=== PATIENT | male | born 1960 | race Hispanic/Latino ===

== ENCOUNTER 2017-01-16 19:35 | Inpatient (IN) | payer SELFPAY ==
[2017-01-16 20:37] LABS: #Eosinphils 0.2 thou/uL (0.0-0.7); #Lymphocytes 3.2 thou/uL (1.20-3.40); #Monocytes 0.8 thou/uL (0.11-0.59); #Neutrophils 6.1 thou/uL (1.40-6.50); %Basophils 0.3 % (0.0-1.0); %Lymphocytes 31.3 % (21.0-51.0); %Monocytes 7.3 % (0.0-10.0); Hematocrit 47.5 % (42.0-52.0); Mean Platelet Volume 6.9 fL (7.4-10.4); Red Blood Cell (RBC) Count 5.22 mill/uL (4.70-6.10); White Blood Cell (WBC) Count 10.3 thou/uL (4.8-10.8)
[2017-01-16] MEDS ORDERED: hydrALAZINE 20 MG/ML VIAL ONE (20:45)
--- NOTE | 2017-01-16 20:54 | RAD ---
CHEST ONE VIEW 01/16/17 HISTORY: Hypertension. COMPARISON: None. FINDINGS: Lungs are clear. No pneumothorax or effusion. Cardiac silhouette and mediastinal contours are within normal limits for technique. IMPRESSION: No acute intrathoracic abnormality. POS: [facility]
[2017-01-16 20:58] LABS: ALT (SGPT) 16 U/L (8-55); AST (SGOT) 18 U/L (5-34); Alkaline Phosphatase 87 U/L (40-150); Anion Gap 10 mmol/L (10-20); BUN (Urea Nitrogen) 13 mg/dL (8.4-25.7); Bilirubin, Total 0.4 mg/dL (0.2-1.2); CK (CPK) 167 U/L (30-200); Calc. Creatinine Clearance 0 mL/min (70-130); Calcium 9.5 mg/dL (7.8-10.44); Carbon Dioxide 27 mmol/L (22-29); Chloride 106 mmol/L (98-107); Estimated GFR-MDRD Greater than 90; Globulin 3.3 g/dL (2.4-3.5); Protein, Total 7.4 g/dL (6.0-8.3)
[2017-01-16 21:02] LABS: PTT 27.7 SEC (22.9-36.1); Prothrombin Time 13.2 SEC (12.0-14.7)
--- NOTE | 2017-01-16 21:14 | CT ---
CT BRAIN WITHOUT CONTRAST 01/16/17 HISTORY: Hypertension. Cranial nerve palsy. COMPARISON: None available. FINDINGS: There is abnormal hypodensity of the right external capsule as well as other hypodensities of the rig ht thalamus. Given lack of prior examinations, this is age indeterminate for infarction. No acute hem orrhage. No midline shift or mass effect. Ventricular size and extra-axial CSF spaces are normal for age. There appears to be atrophy of the bilateral lateral rectus muscles. IMPRESSION: 1. Numerous hypodensities throughout the right external capsule, basal ganglia and thalamus are age indeterminate for infarction. MRI should be obtained if there is concern for acute infarction as there is no comparison. 2. No hemorrhage. 3. Bilateral atrophy of the lateral rectus muscles. POS: [facility]
[2017-01-16 21:16] LABS: Bilirubin Negative (Negative); Blood, Urine Negative (Negative); Glucose, Urine (Dipstick) Negative (Negative); Ketone, Urine Negative (Negative); Nitrite Negative (Negative); Protein, Urine (Dipstick) Negative (Neg-Trace)
[2017-01-16] MEDS ORDERED: Aspirin 325 MG TAB ONE (22:49)
--- NOTE | 2017-01-16 22:53 | PDOC.EVN ---
Event Note - Event Note Event Note: [id number] H&P Dictated 1. Acute CVA 2. HTN Plan: see orders
[2017-01-16] MEDS ORDERED: Atorvastatin Calcium 40 MG TAB PO SCH (23:15)
[2017-01-17 00:21] LABS: Troponin I Less than 0.010 ng/mL (< 0.028)
[2017-01-17] MEDS: Sodium Chloride 0.9% 1,000 ML IV SCH ×2 (00:32→13:10)
[2017-01-17 02:20] VITALS: BMI 32.6
[2017-01-17 02:58] LABS: Troponin I Less than 0.010 ng/mL (< 0.028)
--- NOTE | 2017-01-17 08:42 | ULT ---
BILATERAL CAROTID DUPLEX ULTRASOUND: Date: 01/17/17 HISTORY: Double vision. FINDINGS: Real-time color Doppler evaluation of the right and left carotid systems was performed. The left guzman tid bifurcation was high in position and was difficult to visualize. On the right side, peak systolic velocities of the common carotid were 126 cm/second. Internal carot id velocities were 99 cm/second and external carotid velocities were 99 cm/second. On the left side, peak systolic velocities of the common carotid were 120 cm/second. Internal carotid velocities were 53 cm/second and external carotid velocities were 107 cm/second. Vertebral flow was antegrade bilaterally. IMPRESSION: No evidence of hemodynamically significant stenosis of either internal carotid artery. POS: [facility]
[2017-01-17] MEDS: Aspirin 81 mg Enteric Coated Tablet PO SCH (08:49)
--- NOTE | 2017-01-17 09:52 | HP ---
DATE OF ADMISSION: 01/16/2017 CHIEF COMPLAINT: Bilateral double vision. HISTORY OF PRESENT ILLNESS: The patient is a 56-year-old male with past medical history of hypertension came to the ER for bilateral double vision. The patient said he started having double vision since yesterday. The patient complains of generalized weakness, so the patient went to the research analyst because of double vision. In the Ophthalmology office, the patient was diagnosed having elevated blood pressures, so the patient was to go to the ER. The patient denies any headache, denies any nausea, denies any vomiting, denies any chest pain, denies any palpations, denies any cough, denies sputum production, denies any numbness or tingling in the arms or legs, denies any fever, denies any chills. PAST MEDICAL HISTORY: Hypertension. PAST SURGICAL HISTORY: None. SOCIAL HISTORY: Positive for smoking. Denies alcohol, denies any drugs. FAMILY HISTORY: Positive for heart problems. REVIEW OF SYSTEMS: Constitutional: Denies any fever, denies any chills. Eyes: Positive for double vision. Neck: Denies any neck pain. Throat: Denies any throat pain. Cardiovascular: Denies any chest pain, denies any palpitations. Respiratory: Denies any cough, denies sputum production. Gastrointestinal: Denies any nausea, vomiting. Musculoskeletal: denies joint deformities, Integumentary: Denies any rash. Cranial Nerve System: Denies syncope. Psychiatric: Denies anxiety. All other review of systems are reviewed and are negative. PHYSICAL EXAMINATION: CONSTITUTIONAL/VITAL SIGNS: At the time of H&P performed, blood pressure is 180 /98, pulse oximetry 98%, heart rate 78. GENERAL: This patient appears comfortable. HEENT: Pupils equal, round, and reactive to light. Anterior nares patent. Eyes positive for double vision. Nose normal. Teeth intact. Tongue is moist. NECK: Supple, no JVD. CARDIOVASCULAR: S1, S2 present. Regular rate and rhythm. No murmurs, no rubs , no gallops. RESPIRATORY: No wheezing, no rhonchi. Breath sounds bilaterally. GASTROINTESTINAL: Soft, nontender, no guarding, no organomegaly, no masses felt. MUSCULOSKELETAL: No edema. CRANIAL NERVE SYSTEM: Awake. Eyes, positive for double vision. Able to move both the eyes. Neck strength intact, sensory intact. MUSCULOSKELETAL: No edema. PSYCHIATRIC: Mood appropriate at this time. GENITOURINARY: No suprapubic tenderness, no flank tenderness. LABORATORY DATA: White count 10.3, hemoglobin 15.6, platelet count is 245. PT 13.2, INR 1. BMP shows sodium 139, potassium 3.8, chloride 106, CO2 is 27, BUN of 13, creatinine 0.79, glucose 94, calcium 9.5. CK-MB 3.6, troponin 0.010. ASSESSMENT AND PLAN: The patient is a 56-year-old male. 1. Cerebrovascular accident, possibly acute cerebrovascular accident. Plan to consult Neurology to evaluate the patient. Plan to do MRI brain. Plan to keep the patient. Plan to check carotid ultrasound. Plan to get PT, OT to evaluate the patient. 2. Hypertension. CT showed multiple hypodensities. Plan to try to keep systolic blood pressure around 170s to 180s. We will slowly titrate his blood pressure medications. We will monitor blood pressure closely. 3. Deep venous thrombosis and gastrointestinal prophylaxis, SCDs and PPI. The case was discussed in detail with the patient. [facility]
[2017-01-17] MEDS ORDERED: Amlodipine 5 MG TAB PO SCH (13:00)
--- NOTE | 2017-01-17 13:00 | PDOC.PN ---
- Subjective Encounter Start Date: 01/17/17 Encounter Start Time: 08:00 Pt seen for followup re: CVA. Denies chest pain, shortness of breath, fevers or chills. No nausea or vomiting. Unsure re; double vision. - Objective MAR Reviewed: Yes Vital Signs & Weight: Vital Signs (12 hours) Temp Pulse Resp BP Pulse Ox 01/17/17 11:04 97.6 F 71 20 174/92 H 95 01/17/17 10:10 93 18 171/93 H 97 01/17/17 08:50 98.4 F 80 20 01/17/17 07:20 98.4 F 80 20 177/97 H 95 01/17/17 04:00 98.1 F 76 18 143/75 H 95 Weight Weight 178 lb 9.191 oz I&O: 01/16/17 01/17/17 01/18/17 06:59 06:59 06:59 Intake Total 515 Output Total 850 300 Balance -335 -300 Result Diagrams: 01/16/17 20:32 01/16/17 20:32 EKG Reviewed by me: Yes (Tele; NSR) Phys Exam - Physical Examination Obese HEENT: PERRLA, moist MMs, sclera anicteric, oral pharynx no lesions Neck: no nodes, no JVD, supple, full ROM Respiratory: no wheezing, no rales, no rhonchi, clear to auscultation bilateral Cardiovascular: RRR, no rub Gastrointestinal: soft, non-tender, no distention, positive bowel sounds Musculoskeletal: pulses present Neurological: non-focal, normal sensation, moves all 4 limbs Lymphatic: no nodes Psychiatric: normal affect, A&O x 3 Skin: no rash, normal turgor, cap refill <2 seconds Dx/Plan (1) Hypertensive emergency Code(s): I16.1 - HYPERTENSIVE EMERGENCY Status: Acute (2) CVA (cerebral vascular accident) Code(s): I63.9 - CEREBRAL INFARCTION, UNSPECIFIED Status: Suspected (3) Diplopia Code(s): H53.2 - DIPLOPIA Status: Acute (4) Tobacco abuse Code(s): Z72.0 - TOBACCO USE Status: Chronic - Plan PT/OT, out of bed/ambulate * . Start hydralazine, amlodipine scheduled. Start PRN IV hydralazine. Check urine drug screen. Continue statin, aspirin. Await MRI brain, neurology consult. Review of Systems - Review of Systems Constitutional: negative: Fever, Chills, Sweats, Weakness, Malaise Respiratory: negative: Cough, Dry, Shortness of Breath, Hemoptysis, SOB with Excertion, Pleuritic Pain, Sputum, Wheezing Cardiovascular: negative: Chest Pain, Palpitations, Orthopnea, Paroxysmal Noc. Dyspnea, Edema, Light Headedness Gastrointestinal: negative: Nausea, Vomiting, Abdominal Pain, Diarrhea, Constipation, Melena, Hematochezia Skin: negative: Rash, Lesions, Nick, Bruising Neurological: negative: Weakness, Numbness, Incoordination, Change in Speech, Confusion, Seizures - Medications/Allergies Allergies/Adverse Reactions: Allergies Allergy/AdvReac Type Severity Reaction Status Date / Time No Known Allergies Allergy Verified 01/17/17 01:53 Medications: Current Medications Amlodipine Besylate (Norvasc) 5 mg PO DAILY [facility] Amlodipine Besylate (Norvasc) 5 mg PO NOW [facility] Stop: 01/17/17 15:00 Aspirin (Ecotrin) 81 mg PO DAILY [facility] Last Admin: 01/17/17 08:49 Dose: 81 mg Atorvastatin Calcium (Lipitor) 40 mg PO HS [facility] Hydralazine HCl (Apresoline) 10 mg SLOW IVP Q6H PRN PRN Reason: SBP Greater Than 170 Hydralazine HCl (Apresoline) 25 mg PO TID [facility] Sodium Chloride (Normal Saline 0.9%) 1,000 mls @ 75 mls/hr IV .[id number] [facility] Last Admin: 01/17/17 00:32 Dose: 1,000 mls Influenza Virus Vaccine (Fluzone Quad [id number] Syringe) 0.5 ml IM .ONCE ONE Stop: 01/18/17 09:01 Pneumococcal Polyvalent Vaccine (Pneumovax 23) 0.5 ml IM .ONCE ONE Stop: 01/18/17 09:01 Sodium Chloride (Flush - Normal Saline) 10 ml IVF Q12HR [facility] Last Admin: 01/17/17 08:52 Dose: Not Given Sodium Chloride (Flush - Normal Saline) 10 ml IVF PRN PRN PRN Reason: Saline Flush
[2017-01-17] MEDS: hydrALAZINE 20 MG/ML VIAL SLOW IVP PRN (13:19)
--- NOTE | 2017-01-17 14:20 | MRI ---
MRI BRAIN PERFORMED WITHOUT CONTRAST ENHANCEMENT: Date: 01/17/17 HISTORY: Stroke symptoms, double vision x2 days. FINDINGS: There is mild ventricular and sulcal prominence. There are some areas of T2 and FLAIR hyperintensity within the white matter consistent with some chronic white matter change. On the diffusion-weighted s equence, I do not see any signs that would suggest acute infarct. No intra or extra-axial masses. The pituitary is normal in appearance. There is mucosal change in the mastoid air cells bilaterally. IMPRESSION: Atrophy with chronic white matter change. No acute intracranial process. POS: [facility]
[2017-01-17 14:41] LABS: Amphetamine Not Detected (NotDetected); Methadone Not Detected (NotDetected); Methamphetamine Not Detected (NotDetected)
[2017-01-17] MEDS: hydrALAZINE 25 MG TAB PO SCH ×2 (14:56→20:10)
[2017-01-17] MEDS ORDERED: cloNIDine 0.1 MG TAB PO SCH (16:15)
[2017-01-17] MEDS ORDERED: hydrALAZINE 20 MG/ML VIAL SLOW IVP SCH (16:15)
[2017-01-17] MEDS: Atorvastatin Calcium 40 MG TAB PO SCH (20:09)
--- NOTE | 2017-01-17 22:24 | CON ---
DATE OF CONSULTATION: 01/17/2017 REFERRING PROVIDER: Dr. Kurt Matthews. REASON FOR CONSULTATION: Diplopia. HISTORY OF PRESENT ILLNESS: Mr. Tom is a pleasant 56-year-old male who has been consul meagan for evaluation of diplopia. History is somewhat limited as the patient is speaking and thus it was being translated by a friend. According to the patient, he started having double vision yesterday. His double vision was side to side, it was worse with looking at distance. He had gone t o see his environmental engineering assistant where he was noted to have a high blood pressure and thus he was asked to b e present to the emergency room. He reports, he felt too weak all over, but was able to walk without any difficulty. He did not have any balance issues. There was no headache, chest pain, palpitation , nausea, vomiting, lightheadedness or dizziness. He did not complain of any numbness or tingling se nsation or weakness in upper or unilateral weakness. He reports that his symptoms are better today c ompared to yesterday. PAST MEDICAL HISTORY: Significant for hypertension. PAST SURGICAL HISTORY: None. SOCIAL HISTORY: He denies alcohol use or illicit drug use. He does smoke on a daily basis. FAMILY HISTORY: Significant for heart problems. CURRENT MEDICATIONS: Please review MAR. ALLERGIES: No known drug allergies. REVIEW OF SYSTEMS: As mentioned in the HPI, otherwise negative. PHYSICAL EXAMINATION: VITAL SIGNS: Blood pressure of 200/104, pulse of 81, temperature of 98, respirations of 18 and O2 sa ts of 99% on room air. GENERAL: A well-developed, well-nourished male in no apparent distress. RESPIRATORY: Clear to auscultation bilaterally. CARDIOVASCULAR: Regular rate and rhythm. NEUROLOGICAL: Mental status: The patient is awake, alert and oriented x3. Speech and language: Fl uent speech. Cranial nerves: Pupils are 3 mm and reactive. Visual glynn are intact. Extraocular muscles are intact. No nystagmus is noted. Face is symmetric. Tongue and uvula are midline. Motor exam showed normal tone and bulk with a 5/5 strength in both upper and lower extremities. Sensory: Sensation is intact and symmetric. Deep tendon reflexes are 2+ reflexes in both upper and lower ext remities. Babinski: Plantar responses flexion bilaterally. Coordination intact to [id number] er tapping bilaterally. Romberg is negative. Gait is normal. Tandem gait. LABORATORY DATA: Labs are reviewed, which included CBC, coag panel, CMP, lipid profile, urinalysis a nd urine drug screen, which is all essentially normal. IMAGING STUDIES: MRI brain without contrast was reviewed, which showed no acute intracranial abnorma lity. Carotid Doppler results were reviewed, which showed no extracranial vascular abnormality. Ech ocardiogram results were reviewed, which was essentially normal. IMPRESSION AND PLAN: 1. Hypertensive urgency. 2. Bilateral diplopia, due to #1. 3. Malignant hypertension. Mr. Tom is a pleasant 56-year-old male who presented the sudden onset of diplopia. His blood pressure was noted to be significantly elevated. His symptoms are better now. I have reviewe d his MRI brain, carotid Dopplers and echocardiogram results, which are essentially normal. His even ts are likely secondary to hypertensive urgency. I would recommend treating his blood pressure with a goal of systolic pressure of 120-140/80-85. Patient needs to be on aspirin 81 mg daily for seconda ry stroke prevention. Patient is okay to be discharged to home when medically ready. Thank you for your consultation.
[2017-01-18] MEDS: Sodium Chloride 0.9% 1,000 ML IV SCH ×2 (02:05→14:02)
[2017-01-18] MEDS: hydrALAZINE 25 MG TAB PO SCH ×3 (08:13→20:31)
[2017-01-18] MEDS: Aspirin 81 mg Enteric Coated Tablet PO SCH (08:13)
[2017-01-18] MEDS ORDERED: Amlodipine 5 MG TAB PO SCH ×2 (09:00→12:15)
[2017-01-18] MEDS ORDERED: FLU VACC QS2017-18 36 mo. & older 0.5 ML SYRINGE IM ONE (09:00)
[2017-01-18] MEDS ORDERED: hydrALAZINE 25 MG TAB PO SCH (10:00)
[2017-01-18] MEDS: hydrALAZINE 20 MG/ML VIAL SLOW IVP PRN (11:48)
--- NOTE | 2017-01-18 12:05 | PDOC.PN ---
- Subjective Encounter Start Date: 01/18/17 Encounter Start Time: 07:20 Pt seen for followup re: hypertensive urgency. denoies chest pain, nausea or vomiting. No diplopia. - Objective MAR Reviewed: Yes Vital Signs & Weight: Vital Signs (12 hours) Temp Pulse Resp BP Pulse Ox 01/18/17 11:55 98.8 F 83 20 209/102 H 96 01/18/17 11:48 72 01/18/17 09:51 72 01/18/17 08:13 72 01/18/17 08:00 97.7 F 72 16 189/96 H 97 01/18/17 04:16 98.5 F 72 16 143/86 H 97 01/18/17 00:16 98.4 F 81 16 130/75 98 Weight Weight 190 lb 3.2 oz I&O: 01/17/17 01/18/17 01/19/17 06:59 06:59 06:59 Intake Total 515 490 Output Total 850 300 Balance -335 190 Result Diagrams: 01/16/17 20:32 01/16/17 20:32 EKG Reviewed by me: Yes (Tele: NSR) Phys Exam - Physical Examination obese HEENT: moist MMs, oral pharynx no lesions Neck: supple Respiratory: clear to auscultation bilateral Cardiovascular: RRR Gastrointestinal: soft Musculoskeletal: pulses present Neurological: non-focal, normal sensation, moves all 4 limbs Psychiatric: normal affect Skin: no rash Dx/Plan (1) Hypertensive urgency Code(s): I16.0 - HYPERTENSIVE URGENCY Status: Acute (2) Tobacco abuse Code(s): Z72.0 - TOBACCO USE Status: Chronic (3) CVA (cerebral vascular accident) Code(s): I63.9 - CEREBRAL INFARCTION, UNSPECIFIED Status: Ruled-out (4) Diplopia Code(s): H53.2 - DIPLOPIA Status: Resolved - Plan PT/OT, out of bed/ambulate, DVT proph w/SCDs * . Increase hydralazine to 50 mg PO TID. Continue PRN IV labetalol and IV hydralazine. Start PRN IV clonidine. Increase amlodipine to 10 mg daily. No stroke on MRI. Continue nicotine replacement therapy. Review of Systems - Review of Systems Constitutional: negative: Fever, Chills, Sweats, Weakness, Malaise Respiratory: negative: Cough, Dry, Shortness of Breath, Hemoptysis, SOB with Excertion, Pleuritic Pain, Sputum, Wheezing Cardiovascular: negative: Chest Pain, Palpitations, Orthopnea, Paroxysmal Noc. Dyspnea, Edema, Light Headedness Neurological: negative: Weakness, Numbness, Incoordination, Change in Speech, Confusion, Seizures - Medications/Allergies Allergies/Adverse Reactions: Allergies Allergy/AdvReac Type Severity Reaction Status Date / Time No Known Allergies Allergy Verified 01/17/17 01:53 Medications: Current Medications Amlodipine Besylate (Norvasc) 5 mg PO DAILY [facility] Last Admin: 01/18/17 08:13 Dose: 5 mg Aspirin (Ecotrin) 81 mg PO DAILY [facility] Last Admin: 01/18/17 08:13 Dose: 81 mg Atorvastatin Calcium (Lipitor) 40 mg PO HS [facility] Last Admin: 01/17/17 20:09 Dose: 40 mg Hydralazine HCl (Apresoline) 10 mg SLOW IVP Q6H PRN PRN Reason: SBP Greater Than 170 Last Admin: 01/18/17 11:48 Dose: 10 mg Hydralazine HCl (Apresoline) 50 mg PO TID [facility] Sodium Chloride (Normal Saline 0.9%) 1,000 mls @ 75 mls/hr IV .[id number] [facility] Last Admin: 01/18/17 02:05 Dose: Not Given Labetalol HCl (Normodyne) 10 mg SLOW IVP Q4H PRN PRN Reason: SBP Greater Than 180 Sodium Chloride (Flush - Normal Saline) 10 ml IVF Q12HR [facility] Last Admin: 01/18/17 08:18 Dose: 10 ml Sodium Chloride (Flush - Normal Saline) 10 ml IVF PRN PRN PRN Reason: Saline Flush Last Admin: 01/17/17 13:20 Dose: 10 ml
[2017-01-18] MEDS ORDERED: Acetaminophen 325 MG TAB PO SCH (12:30)
[2017-01-18] MEDS: cloNIDine 0.1 MG TAB PO PRN (15:19)
[2017-01-18] MEDS: Labetalol HCl 100 MG/20 ML VIAL SLOW IVP PRN (17:25)
[2017-01-18] MEDS ORDERED: Acetaminophen 325 MG TAB PO PRN (18:30)
[2017-01-18] MEDS: Atorvastatin Calcium 40 MG TAB PO SCH (20:31)
[2017-01-19] MEDS: hydrALAZINE 20 MG/ML VIAL SLOW IVP PRN ×2 (00:41→12:54)
[2017-01-19] MEDS: hydrALAZINE 25 MG TAB PO SCH ×3 (09:16→20:13)
[2017-01-19] MEDS: Aspirin 81 mg Enteric Coated Tablet PO SCH (09:16)
[2017-01-19] MEDS: Amlodipine 10 MG TAB PO SCH (09:16)
--- NOTE | 2017-01-19 13:37 | PDOC.PN ---
- Subjective Encounter Start Date: 01/19/17 Encounter Start Time: 07:20 Pt seen for followup re: hypertensive urgency. Denies chest pain, shortness of breath, fevers or chills. - Objective MAR Reviewed: Yes Vital Signs & Weight: Vital Signs (12 hours) Temp Pulse Pulse Pulse Resp BP BP 01/19/17 12:54 76 01/19/17 11:05 97.5 F L 76 18 01/19/17 09:16 73 01/19/17 09:15 83 83 187/90 H 172/89 H 01/19/17 08:00 98 F 73 18 01/19/17 07:30 98 F 73 18 01/19/17 04:07 98.2 F 80 14 BP BP Pulse Ox 01/19/17 12:54 01/19/17 11:05 185/90 H 97 01/19/17 09:16 01/19/17 09:15 01/19/17 08:00 01/19/17 07:30 187/93 H 98 01/19/17 04:07 139/85 99 Weight Weight 184 lb 14.4 oz I&O: 01/18/17 01/19/17 01/20/17 06:59 06:59 06:59 Intake Total 490 1415 Output Total 300 Balance 190 1415 Result Diagrams: 01/16/17 20:32 01/16/17 20:32 EKG Reviewed by me: Yes (Tele: NSR) Phys Exam - Physical Examination Obesity HEENT: moist MMs, oral pharynx no lesions Neck: no JVD, supple Respiratory: clear to auscultation bilateral Cardiovascular: RRR Gastrointestinal: soft, positive bowel sounds Musculoskeletal: pulses present Neurological: moves all 4 limbs Psychiatric: normal affect Skin: no rash Dx/Plan (1) Hypertensive urgency Code(s): I16.0 - HYPERTENSIVE URGENCY Status: Acute (2) Tobacco abuse Code(s): Z72.0 - TOBACCO USE Status: Chronic (3) CVA (cerebral vascular accident) Code(s): I63.9 - CEREBRAL INFARCTION, UNSPECIFIED Status: Ruled-out (4) Diplopia Code(s): H53.2 - DIPLOPIA Status: Resolved - Plan * . Increase hydralazine to 75 mg PO TID. Home when HTN is controlled. Continue nicotine replacement therapy. Review of Systems - Review of Systems Respiratory: negative: Cough, Dry, Shortness of Breath, Hemoptysis, SOB with Excertion, Pleuritic Pain, Sputum, Wheezing Cardiovascular: negative: Chest Pain, Palpitations, Orthopnea, Paroxysmal Noc. Dyspnea, Edema, Light Headedness Neurological: negative: Weakness, Numbness, Incoordination, Change in Speech, Confusion, Seizures - Medications/Allergies Allergies/Adverse Reactions: Allergies Allergy/AdvReac Type Severity Reaction Status Date / Time No Known Allergies Allergy Verified 01/17/17 01:53 Medications: Current Medications Acetaminophen (Tylenol) 650 mg PO Q6H PRN PRN Reason: Headache/Fever or Pain Amlodipine Besylate (Norvasc) 10 mg PO DAILY [facility] Last Admin: 01/19/17 09:16 Dose: 10 mg Aspirin (Ecotrin) 81 mg PO DAILY [facility] Last Admin: 01/19/17 09:16 Dose: 81 mg Atorvastatin Calcium (Lipitor) 40 mg PO HS [facility] Last Admin: 01/18/17 20:31 Dose: 40 mg Clonidine (Catapres) 0.1 mg PO Q4H PRN PRN Reason: SBP Greater Than 180 Last Admin: 01/18/17 15:19 Dose: 0.1 mg Hydralazine HCl (Apresoline) 10 mg SLOW IVP Q6H PRN PRN Reason: SBP Greater Than 170 Last Admin: 01/19/17 12:54 Dose: 10 mg Hydralazine HCl (Apresoline) 75 mg PO TID [facility] Hydralazine HCl (Apresoline) 25 mg PO NOW [facility] Stop: 01/19/17 15:45 Labetalol HCl (Normodyne) 10 mg SLOW IVP Q4H PRN PRN Reason: SBP Greater Than 180 Last Admin: 01/18/17 17:25 Dose: 2 ml Sodium Chloride (Flush - Normal Saline) 10 ml IVF Q12HR [facility] Last Admin: 01/19/17 09:17 Dose: 10 ml Sodium Chloride (Flush - Normal Saline) 10 ml IVF PRN PRN PRN Reason: Saline Flush Last Admin: 01/17/17 13:20 Dose: 10 ml
[2017-01-19] MEDS ORDERED: hydrALAZINE 25 MG TAB PO SCH (13:45)
[2017-01-19] MEDS ORDERED: ISOVUE-370 76%-LOCM 1 ML ONE (13:47)
[2017-01-19 14:21] LABS: #Basophils 0.1 thou/uL (0.0-0.2); #Eosinphils 0.1 thou/uL (0.0-0.7); #Monocytes 0.7 thou/uL (0.11-0.59); #Neutrophils 8.3 thou/uL (1.40-6.50); %Basophils 0.6 % (0.0-1.0); %Lymphocytes 24.7 % (21.0-51.0); Hematocrit 51.4 % (42.0-52.0); Mean Platelet Volume 6.8 fL (7.4-10.4); Red Blood Cell (RBC) Count 5.57 mill/uL (4.70-6.10); White Blood Cell (WBC) Count 12.3 thou/uL (4.8-10.8)
[2017-01-19 14:43] LABS: Anion Gap 11 mmol/L (10-20); BUN (Urea Nitrogen) 16 mg/dL (8.4-25.7); Calc. Creatinine Clearance 118 mL/min (70-130); Calcium 9.6 mg/dL (7.8-10.44); Carbon Dioxide 27 mmol/L (22-29); Chloride 105 mmol/L (98-107); Estimated GFR-MDRD Greater than 90
[2017-01-19] MEDS ORDERED: Nicotine 21 MG PATCH TD SCH (18:30)
--- NOTE | 2017-01-19 19:15 | CT ---
CT ANGIO NECK: Technique: Multiple axial tomograms obtained through the neck with IV enhancement in the arterial pha se following angio protocol with multiplanar reconstruction and 3D post processing. History: Assess for aneurysm. Patient complains of visual disturbance. FINDINGS: No evidence of atherosclerotic disease or stenosis at the origin of the arch vessels. The left common carotid is patent and normal caliber. There are atherosclerotic changes seen at the left bulb and proximal left ICA with noncalcified plaqu e. There is no evidence of significant stenosis identified. Right common carotid is unremarkable. Mild atherosclerotic changes are seen at the right bulb and pro ximal right ICA. No evidence of stenosis. No evidence of dissection seen in either extracranial carot id artery. The vertebral arteries are identified and appear unremarkable. Basilar artery is partially imaged and appears unremarkable. Soft tissues are unremarkable. Lung apices appear clear. IMPRESSION: Mild atherosclerotic changes seen in both proximal internal carotid arteries. No evidence of stenosis , aneurysm, or dissection. POS: [facility]
[2017-01-19] MEDS: Atorvastatin Calcium 40 MG TAB PO SCH (20:13)
[2017-01-20 05:18] LABS: #Eosinphils 0.2 thou/uL (0.0-0.7); #Lymphocytes 2.2 thou/uL (1.20-3.40); #Neutrophils 8.8 thou/uL (1.40-6.50); %Eosinophils 1.5 % (0.0-10.0); %Lymphocytes 17.9 % (21.0-51.0); Hematocrit 47.1 % (42.0-52.0); Mean Platelet Volume 7.1 fL (7.4-10.4); Red Blood Cell (RBC) Count 5.11 mill/uL (4.70-6.10); White Blood Cell (WBC) Count 12.2 thou/uL (4.8-10.8)
[2017-01-20 05:31] LABS: Anion Gap 10 mmol/L (10-20); BUN (Urea Nitrogen) 19 mg/dL (8.4-25.7); Calc. Creatinine Clearance 127 mL/min (70-130); Carbon Dioxide 23 mmol/L (22-29); Chloride 107 mmol/L (98-107); Estimated GFR-MDRD Greater than 90
[2017-01-20] MEDS: hydrALAZINE 25 MG TAB PO SCH (08:44)
[2017-01-20] MEDS: Aspirin 81 mg Enteric Coated Tablet PO SCH (08:44)
[2017-01-20] MEDS: Amlodipine 10 MG TAB PO SCH (08:44)
[2017-01-20] MEDS: cloNIDine 0.1 MG TAB PO PRN (12:24)
--- NOTE | 2017-01-20 12:44 | PDOC.FM ---
- Subjective Subjective: Page received from hospitalist team regarding family's desire to transition care while hospitalized. In short, pt is a 56 yo HM with PMH of HTN p/w diplopia thought to be secondary to HTN urgency. Acute CVA has been ruled out with normal MRI brain, CTA neck, & TTE. CT brain does show atrophy of bilateral lateral rectus muscles. Pt has had difficult to control HTN. Pt seen at beside eating lunch in NAD. JOHN overnight per pt. No family at bedside. Pt denies CHIU, CP, SOB, NVD but notes he still has diplopia when his eyes are uncovered. - Objective MAR Reviewed: Yes Vital Signs & Weight: Vital Signs (12 hours) Temp Pulse Resp BP BP BP Pulse Ox 01/20/17 12:24 187/92 H 01/20/17 11:25 98.7 F 87 18 187/92 H 98 01/20/17 10:00 171/91 H 01/20/17 08:44 86 187/99 H 01/20/17 08:00 98 F 86 18 01/20/17 07:40 98.0 F 86 18 187/99 H 100 01/20/17 03:29 97.8 F 77 16 154/99 H 99 Weight Weight 83.869 kg I&O: 01/19/17 01/20/17 01/21/17 06:59 06:59 06:59 Intake Total 1415 1630 240 Balance 1415 1630 240 Result Diagrams: 01/20/17 04:53 01/20/17 04:53 <Alireza Whatley - Last Filed: 01/20/17 14:41> - Objective Vital Signs & Weight: Vital Signs (12 hours) Temp Pulse Resp BP BP BP Pulse Ox 01/20/17 13:52 191/87 H 01/20/17 12:24 187/92 H 01/20/17 11:25 98.7 F 87 18 187/92 H 98 01/20/17 10:00 171/91 H 01/20/17 08:44 86 187/99 H 01/20/17 08:00 98 F 86 18 01/20/17 07:40 98.0 F 86 18 187/99 H 100 01/20/17 03:29 97.8 F 77 16 154/99 H 99 Weight Weight 83.869 kg I&O: 01/19/17 01/20/17 01/21/17 06:59 06:59 06:59 Intake Total 1415 1630 240 Balance 1415 1630 240 Result Diagrams: 01/20/17 04:53 01/20/17 04:53 <HeathGumaro A - Last Filed: 01/20/17 15:22> Phys Exam - Physical Examination Constitutional: NAD HEENT: PERRLA right eye covered, left EOMI except mildly limited lateral abduction when uncovered both eyes are slightly inferiorly adducted Neck: no JVD, full ROM Respiratory: no wheezing, clear to auscultation bilateral Cardiovascular: RRR, no significant murmur Gastrointestinal: soft, non-tender, positive bowel sounds Musculoskeletal: no edema, pulses present Neurological: non-focal, moves all 4 limbs Psychiatric: normal affect, A&O x 3 Skin: cap refill <2 seconds <Alireza Whatley - Last Filed: 01/20/17 14:41> Dx/Plan (1) Hypertensive urgency Code(s): I16.0 - HYPERTENSIVE URGENCY Status: Acute Plan: -pt initially admitted for CVA r/o 2/2 HTN urgency and found to have no evidence of CVA -neurology on board and has already signed off, recs greatly appreciated -pt has had difficult to control HTN on PO amlodipine and hydralazine -will transition hydralazine to lisinopril/HCTZ combo -workup for secondary HTN including renal US and renin/aldosterone ratio -continue to monitor closely with goal BP 120-140/80s -PRN clonidine and hydralazine available (2) Diplopia Code(s): H53.2 - DIPLOPIA Status: Acute Plan: -pt has evidence of CN palsy on exam and by history -initial CT brain shows atrophy of lateral rectus muscles bilaterally -continue with alternating eye patch q4h -will consult ophthalmology for further assistance -continue to monitor (3) Tobacco abuse Code(s): Z72.0 - TOBACCO USE Status: Chronic Plan: -food counselor cessation - Plan Plan: dispo: Pt stable however BP still uncontrolled. Medication changes including introduction of SHAWN/diuretic combo. Workup for secondary causes pending. Ophthalmology consultation, recommendations greatly appreciated. Continue to monitor closely. <Alireza Whatley - Last Filed: 01/20/17 14:41> Attending Addendum - Attending Addendum I personally evaluated the patient and discussed the management with Dr. Whatley. I agree with the History, Examination, Assessment and Plan documented above with any addition or exceptions noted below. <Gumaro Joe - Last Filed: 01/20/17 15:22>
[2017-01-20] MEDS: Lisinopril/Hydrochlorothiazide 20/25 mg Tablet PO SCH (13:52)
[2017-01-20 13:59] LABS: Hemoglobin A1c 5.4 % (4.0-6.0)
[2017-01-20] MEDS: Atorvastatin Calcium 40 MG TAB PO SCH (20:36)
[2017-01-20] MEDS: Labetalol HCl 100 MG/20 ML VIAL SLOW IVP PRN (21:39)
--- NOTE | 2017-01-21 06:43 | PDOC.FM ---
- Subjective Subjective: Pt seen at bedside in NAD. JOHN overnight. Notes he feels very well and is happy to see his BP has lowered. Pt had pressure eye patch changed for non pressure eye paper and notes good results, pt notes diplopia has improved. - Objective MAR Reviewed: Yes Vital Signs & Weight: Vital Signs (12 hours) Temp Pulse Resp BP BP Pulse Ox 01/21/17 04:19 97.7 F 98 16 130/74 97 01/21/17 00:31 99 F 64 16 141/77 H 96 01/20/17 22:12 176/94 H 01/20/17 21:39 78 01/20/17 21:12 98.4 F 84 20 194/106 H 97 01/20/17 20:00 98.4 F 78 20 97 Weight Weight 83.189 kg I&O: 01/19/17 01/20/17 01/21/17 06:59 06:59 06:59 Intake Total 1415 1630 1562 Output Total 4 Balance 1415 1630 1558 Result Diagrams: 01/20/17 04:53 01/20/17 04:53 <Alireza Whatley - Last Filed: 01/21/17 08:38> - Objective Vital Signs & Weight: Vital Signs (12 hours) Temp Pulse Resp BP BP Pulse Ox 01/21/17 08:29 98 182/88 H 01/21/17 08:28 98 182/88 H 01/21/17 04:19 97.7 F 98 16 130/74 97 01/21/17 00:31 99 F 64 16 141/77 H 96 Weight Weight 83.189 kg I&O: 01/20/17 01/21/17 01/22/17 06:59 06:59 06:59 Intake Total 1630 1562 Output Total 4 Balance 1630 1558 Result Diagrams: 01/20/17 04:53 01/20/17 04:53 <Hermelinda Min - Last Filed: 01/21/17 10:56> Phys Exam - Physical Examination Constitutional: NAD HEENT: PERRLA mild limited lateral abduction bilaterally Neck: no JVD, full ROM Respiratory: no wheezing, clear to auscultation bilateral Cardiovascular: RRR, no significant murmur Gastrointestinal: soft, non-tender Musculoskeletal: no edema, pulses present Neurological: moves all 4 limbs Psychiatric: normal affect, A&O x 3 Skin: cap refill <2 seconds <Alireza Whatley - Last Filed: 01/21/17 08:38> Dx/Plan (1) Hypertensive urgency Code(s): I16.0 - HYPERTENSIVE URGENCY Status: Acute Plan: -pt initially admitted for CVA r/o 2/2 HTN urgency and found to have no evidence of CVA -neurology on board and has already signed off, recs greatly appreciated -pt has had difficult to control HTN on PO amlodipine and hydralazine -will transition hydralazine to lisinopril/HCTZ combo -workup for secondary HTN including renal US and renin/aldosterone ratio -continue to monitor closely with goal BP 120-140/80s -PRN clonidine and hydralazine available (2) Diplopia Code(s): H53.2 - DIPLOPIA Status: Acute Plan: -pt has evidence of CN palsy on exam and by history -initial CT brain shows atrophy of lateral rectus muscles bilaterally -ophthalmology recommendations greatly appreciated -pressure dressing changed for paper eye patch and specialist agrees likely 2/2 HTN and ischemia -continue to monitor and optimize BP control (3) Tobacco abuse Code(s): Z72.0 - TOBACCO USE Status: Chronic Plan: -elementary school counselor cessation - Plan Plan: dispo: Pt improving. BP continues to be elevated, however, improved. Specialist recommendations greatly appreciated. Diplopia continues to improve with BP control and paper eye patch. Continue to monitor HTN closely. Awaiting secondary workup. Likely discharge when BP more consistently near goal. <Alireza Whatley - Last Filed: 01/21/17 08:38> Attending Addendum - Attending Addendum I personally evaluated the patient and discussed the management with Dr. Whatley. I agree with the History, Examination, Assessment and Plan documented above with any addition or exceptions noted below- Patient without complaints. Diplopia resolved. Afebrile BP 140-180/70-90s. A/P: 1) Refractory HTN- renal USG suspicious for right renal artery stenosis; will order CTA of renal vessels ; nephrology consulted; medications adjusted with some improvement; continue to monitor, 2) CN6 palsy- continue alternate eye patching. <Hermelinda Min - Last Filed: 01/21/17 10:56>
[2017-01-21] MEDS: Lisinopril/Hydrochlorothiazide 20/25 mg Tablet PO SCH (08:28)
[2017-01-21] MEDS: Nicotine 21 MG PATCH TD SCH (08:29)
[2017-01-21] MEDS: Aspirin 81 mg Enteric Coated Tablet PO SCH (08:29)
[2017-01-21] MEDS: Amlodipine 10 MG TAB PO SCH (08:29)
--- NOTE | 2017-01-21 08:39 | ULT ---
BILATERAL RENAL ULTRASOUND COMPLETE INCLUDING VASCULAR DUPLEX WITH COLOR AND SPECTRAL DOPPLER IMAGING : History: Hypertension. FINDINGS: The right kidney measures 11.8 x 6 x 6.1 cm. The right kidney measures 10.9 x 6.2 x 5.3 cm. Vascular duplex ultrasound including color and spectral doppler imaging demonstrates a focal area of abnormal increased velocity and 197 cm/sec involving the right renal artery. This certainly raises co ncern for renal artery stenosis. Resistive indices are unremarkable bilaterally. Small right renal cy st. No renal hydronephrosis or perinephric process. IMPRESSION: Abnormal increased velocity in the right renal artery at 197 cm/sec raising concern for focal area of right renal artery stenosis. Follow up CT angiogram in this regard is suggested. Otherwise, unremark able bilateral renal ultrasound. Small right renal cyst. No renal hydronephrosis. POS: MINDY
[2017-01-21] MEDS ORDERED: Sodium Chloride 0.9% 1,000 ML IV SCH ×2 (10:45→12:00)
[2017-01-21] MEDS: cloNIDine 0.1 MG TAB PO PRN (12:44)
--- NOTE | 2017-01-21 13:18 | CT ---
CT ANGIOGRAM OF THE ABDOMEN: 01/21/2017 HISTORY: Evaluate right renal artery stenosis. Concern for renal artery stenosis based on prior renal arteria l Doppler ultrasound. TECHNIQUE: Serial axial CT imaging at 2.5 mm intervals, from the lung bases through the abdominal aortic bifurca tion, with IV contrast, using a CT angiogram protocol. Coronal and sagittal 3D reformatted imaging o btained. FINDINGS: The images lung bases are grossly unremarkable. The liver, spleen, gallbladder, pancreas, adrenal glands, and kidneys are unremarkable. The proximal abdominal aorta/distal thoracic aorta is tortuous but demonstrates no evidence for aneur ysmal dilatation. No evidence for aneurysm or dissection is seen involving the abdominal aorta. There is mild atherosclerotic plaque at the origin of the superior mesenteric artery and celiac axis with no associated hemodynamically significant stenosis. There is atherosclerotic calcification at the origin of the left renal artery with no hemodynamically significant stenosis. There is no stenosis involving the right renal artery. There is an early right renal artery bifurcat ion. There is multilevel lower lumbar spine facet hypertrophic change. There is no worrisome lytic or rodrigo stic bone lesion identified. There are a few prominent mesenteric lymph nodes noted in the right lower quadrant/right abdomen, of uncertain significance, including nodes measuring up to 1.3 cm in short-axis dimension. IMPRESSION: 1. No evidence for renal artery stenosis. 2. Mild fahad prominence in the mesentery of the right lower quadrant, significance uncertain. Plea se consider follow-up CT examination in 3-6 months. CODE T POS: MINDY
[2017-01-21] MEDS ORDERED: ISOVUE-370 76%-LOCM 1 ML ONE (16:22)
[2017-01-21] MEDS ORDERED: Carvedilol 3.125 MG TAB PO SCH (17:00)
[2017-01-21] MEDS: Atorvastatin Calcium 40 MG TAB PO SCH (20:47)
--- NOTE | 2017-01-21 22:45 | CON ---
NEPHROLOGY CONSULTATION NOTE DATE OF CONSULTATION: 01/21/2017 REASON FOR CONSULTATION: Evaluation for renal artery stenosis. HISTORY OF PRESENT ILLNESS: This is a very pleasant 56-year-old gentleman who presented on 01/16 for a possible CVA like symptom. He had a renal ultrasound done, which showed possible renal artery stenosis and the patient had diplopia. The patient at this time denies no headache, numbness, tingling or weakness. Denies any nausea, vomiting or chest pain. PAST MEDICAL HISTORY: Significant for hypertension. PAST SURGICAL HISTORY: None. SOCIAL HISTORY: No alcohol or drug use. FAMILY HISTORY: Negative for ESRD. REVIEW OF SYSTEMS: Fifteen-point review of systems was performed and negative except positives as noted above. GENERAL: Weakness-. HEAD: Headache-. NECK: No swelling or lumps. NOSE: No epistaxis or discharge. EYES: No diplopia or pain. RESPIRATORY: Dyspnea-. CARDIOVASCULAR: Chest pain-. GASTROINTESTINAL: Nausea-. /INCLUSION TEACHER: Hematuria-. MUSCULOSKELETAL: No joint pain. NEUROPSYCHIATRIC SYSTEMS: No suicidal ideation. No ideation. SKIN: Denies any rash or ulcer. CONSTITUTIONAL: No fever or chills. HOME MEDICATIONS: Reviewed. ALLERGIES: Reviewed. PHYSICAL EXAMINATION: GENERAL: This patient is awake and alert. VITAL SIGNS: Afebrile, pulse 75, breathing at 16, blood pressure was 150/80. HEAD/NECK: Normocephalic. Atraumatic. EYES: EOMI. No deformity. EARS: Clear. No ulcers. NOSE: Intact. No lesions. MOUTH: Clear. No discharge. THROAT: Clear. No exudate. LUNGS: Clear. No crackles. CARDIAC: S1, S2. No rub. ABDOMEN: Benign. BS+. GENITALIA/RECTUM: Conteh absent. BACK/EXTREMITIES: Edema 0+. Ulcer- NEUROLOGICAL: Alert and motor intact. SKIN: Rash-. Bruise-. LYMPHATICS: Edema-. Ulcer-. LABORATORY DATA: Showed creatinine was 0.75. ASSESSMENT AND RECOMMENDATIONS: 1. Chronic kidney disease stage 1, stable. 2. Hypertension. Agree with ordering a CT angiogram to look at renal artery stenosis. Titrate home blood pressure medicine. 3. Medications based on glomerular filtration rate are appropriate and no indication for dialysis. [facility]
--- NOTE | 2017-01-22 06:34 | PDOC.FM ---
- Subjective Subjective: Pt seen at bedside in NAD. JOHN overnight. No complaints or concerns at this time. - Objective MAR Reviewed: Yes Vital Signs & Weight: Vital Signs (12 hours) Temp Pulse Resp BP BP Pulse Ox 01/22/17 04:12 98.8 F 67 17 120/72 99 01/22/17 00:27 98.4 F 74 17 155/90 H 97 01/21/17 20:12 98.6 F 78 18 158/85 H 97 01/21/17 20:00 98.6 F 78 18 97 Weight Weight 81.556 kg I&O: 01/20/17 01/21/17 01/22/17 06:59 06:59 06:59 Intake Total 1630 1562 2197 Output Total 4 Balance 1630 1558 2197 Result Diagrams: 01/20/17 04:53 01/20/17 04:53 <Alireza Whatley - Last Filed: 01/22/17 06:32> - Objective Vital Signs & Weight: Vital Signs (12 hours) Temp Pulse Resp BP BP BP Pulse Ox 01/22/17 09:43 154/93 H 01/22/17 08:28 86 171/83 H 01/22/17 08:27 86 171/83 H 01/22/17 08:00 98.4 F 86 20 01/22/17 07:58 98.4 F 86 20 171/83 H 99 01/22/17 04:12 98.8 F 67 17 120/72 99 01/22/17 00:27 98.4 F 74 17 155/90 H 97 Weight Weight 81.556 kg I&O: 01/21/17 01/22/17 01/23/17 06:59 06:59 06:59 Intake Total 1562 2197 120 Output Total 4 Balance 1558 2197 120 Result Diagrams: 01/20/17 04:53 01/20/17 04:53 <Deb Ahumada - Last Filed: 01/22/17 10:56> Phys Exam - Physical Examination Constitutional: NAD HEENT: sclera anicteric mild limited lateral abduction bilaterally Neck: no JVD Respiratory: no wheezing, clear to auscultation bilateral Cardiovascular: RRR, no significant murmur Gastrointestinal: soft, non-tender Musculoskeletal: no edema, pulses present Neurological: moves all 4 limbs Psychiatric: normal affect, A&O x 3 Skin: cap refill <2 seconds <Alireza Whatley - Last Filed: 01/22/17 06:32> Dx/Plan (1) Hypertensive urgency Code(s): I16.0 - HYPERTENSIVE URGENCY Status: Acute Plan: -pt initially admitted for CVA r/o 2/2 HTN urgency and found to have no evidence of CVA -neurology on board and has already signed off, recs greatly appreciated -pt has had difficult to control HTN on PO amlodipine and hydralazine -will transition hydralazine to lisinopril/HCTZ combo -workup for secondary HTN including renal US and renin/aldosterone ratio -renal US showed evidence of right renal artery stenosis but CTA showed no evidence -nephrology on board, recommendations greatly appreciated -pt continues to have difficult to control HTN but much improved over last 24 hrs, carvedilol also introduced -continue to monitor closely with goal BP 120-140/80s -PRN clonidine and hydralazine available (2) Diplopia Code(s): H53.2 - DIPLOPIA Status: Acute Plan: -pt has evidence of CN palsy on exam and by history -initial CT brain shows atrophy of lateral rectus muscles bilaterally -ophthalmology recommendations greatly appreciated -pressure dressing changed for paper eye patch and specialist agrees likely 2/2 HTN and ischemia -continue to monitor and optimize BP control (3) Tobacco abuse Code(s): Z72.0 - TOBACCO USE Status: Chronic Plan: -aids counselor cessation - Plan Plan: dispo: Pt continues to improve. Specialist recommendations greatly appreciated. BP medications have continued to be titrated and BP this AM at goal 120/72. Pt stable for discharge on current anti-HTN regimen. Pt will need close outpt f/u to ensure continued adequate BP control. <Alireza Whatley - Last Filed: 01/22/17 06:32> Attending Addendum - Attending Addendum I personally evaluated the patient and discussed the management with Dr. Whatley. I agree with the History, Examination, Assessment and Plan documented above with any addition or exceptions noted below. The patient's blood pressure has been increasing. Meds were adjusted again this morning and patient will be discharged home. <Deb Ahumada - Last Filed: 01/22/17 10:56>
[2017-01-22] MEDS ORDERED: Carvedilol 6.25 MG TAB PO SCH (08:00)
[2017-01-22 08:01] VITALS: TEMP 98.4
[2017-01-22] MEDS: Amlodipine 10 MG TAB PO SCH (08:27)
[2017-01-22] MEDS: Lisinopril/Hydrochlorothiazide 20/25 mg Tablet PO SCH (08:28)
[2017-01-22] MEDS: Nicotine 21 MG PATCH TD SCH (08:28)
[2017-01-22] MEDS: Aspirin 81 mg Enteric Coated Tablet PO SCH (08:28)
[2017-01-22 09:44] VITALS: BP 154/93
--- NOTE | 2017-01-22 11:20 | PRG ---
DATE OF SERVICE: 01/22/2017 SUBJECTIVE: This is a 56-year-old gentleman being seen for hypertension with improving blood pressur e. The patient denies any nausea, vomiting, or chest pain. PHYSICAL EXAMINATION: GENERAL: Patient is awake, alert. VITAL SIGNS: Afebrile, pulse 86, breathing at 16, blood pressure 154/93. GENERAL APPEARANCE AND MENTAL STATUS: Fair. HEAD/NECK: Normocephalic. Atraumatic. EYES: EOMI. No deformity. EARS: Clear. No ulcers. NOSE: Intact. No lesions. MOUTH: Clear. No discharge. THROAT: Clear. No exudate. LUNGS: Clear. No crackles. CARDIAC: S1, S2. No rub. ABDOMEN: Benign. BS+. GENITALIA/RECTUM: Conteh absent. BACK/EXTREMITIES: Edema 0+ Ulcer. NEUROLOGICAL: Alert and motor intact. SKIN: Rash- Bruise. LYMPHATICS: Edema- Ulcer. LABORATORY DATA: Show hemoglobin 15, creatinine 0.7. ASSESSMENT AND RECOMMENDATIONS: 1. Chronic kidney disease stage 1, stable. 2. Hypertension, improved. 3. Secondary hypertension. I would recommend checking a plasma metanephrine and aldosterone level, which has already been ordered. 4. Medication based on glomerular filtration rate are appropriate. The patient can follow up to see me in 1 week.
--- NOTE | 2017-01-23 12:13 | DIS-2 ---
DATE OF ADMISSION: 01/20/2017 DATE OF DISCHARGE: 01/22/2017 RESIDENT: Dr. Alireza Whatley. ADMITTING ATTENDING: Dr. Gumaro Joe. DISCHARGE ATTENDING: Dr. Deb Ahumada. CONSULTATIONS: 1. Neurology, Dr. Laura Lala. 2. Ophthalmology, Dr. Jf Baker. 3. Pulmonology, Dr. Yao Aponte. 4. Nephrology, Dr. Paul Mejía. PROCEDURES: 1. Chest x-ray performed on 01/16/2017 showed no acute abnormality. 2. CT brain from 01/16/2017 showed numerous hypodensities that were indeterminate with no evidence o f hemorrhage and suggestion for MRI brain. The CT also showed bilateral atrophy of the lateral rectu s muscles. 3. Transthoracic echocardiogram for 01/16/2017 showed a normal ejection fraction of 55% to 60%. Nor mal right ventricular size and function, otherwise normal study. 4. Carotid Dopplers performed on 01/17/2017 showed no evidence of hemodynamically significant stenos is of either internal carotid artery. 5. MRI brain performed on 01/17/2017 showed atrophy with chronic matter change; however, no acute in tracranial process. 6. CTA of the neck performed on 01/19/2017 showed mild atherosclerotic changes in both proximal inte rnal carotid arteries; however, no evidence of stenosis or aneurysm or dissection. 7. Renal ultrasound performed on 01/21/2017 showed abnormal increased velocity in the right renal ar samir, raising concern for right renal artery stenosis. 8. CTA abdomen performed on 01/21/2017 showed no evidence for renal artery stenosis. PRIMARY DIAGNOSES: 1. 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 2. Malignant hypertension thought to be secondary to renal artery stenosis. 3. Tobacco abuse. DISCHARGE MEDICATIONS: 1. Amlodipine 10 mg p.o. daily. 2. Aspirin 81 mg p.o. daily. 3. Atorvastatin 40 mg p.o. at bedtime. 4. Carvedilol 6.25 mg p.o. b.i.d. with meals. 5. Lisinopril/hydrochlorothiazide 20/25 mg 1 tab p.o. daily. HISTORY OF PRESENT ILLNESS AND HOSPITAL COURSE: The patient is a very pleasant 56-year-old male, who was transferred to our service on 01/20/2017 following initially being admitted and cared f or by the inpatient hospitalist team. The patient initially presented for complaints of double visio n and was found to have diplopia likely secondary to cranial nerve palsy and atrophy of the latera l rectus muscles bilaterally. For this reason Ophthalmology was consulted and the patient was sent home with paper patches to alternate eyes and slowly correct the issue over time. There was also ini tial concern for CVA therefore Neurology and stroke team were consulted and workup was performed as a kraig; however, found to be negative. The patient struggled with difficult to control hypertension th roughout his hospital stay and was therefore worked up for secondary hypertension. Initial renal ult rasound described above showed evidence of right renal artery stenosis. At this time, Nephrology was consulted and recommended CTA for further elucidation; however, CTA did not reveal initial ultrasoun d showing no evidence of stenosis. The patient was started on the above medication regimen with good control of his blood pressure ranging in the systolic blood pressure range of 120-150 the day prior to discharge. The patient's hospital course was otherwise uncomplicated. DISPOSITION: Stable. DISCHARGE INSTRUCTIONS: 1. Location: Home. 2. Diet: Heart healthy diet. 3. Activity: As tolerated. 4. Followup: The patient was instructed to follow up with [facility] or [facility], and was given information for both these to make an appointment within 1-2 weeks of discharge.
== END 2017-01-22 12:27 | disposition home or self-care (01) | DRG 123 ==
LOC: ERS 19:35 → IMCU/EMU 23:09 → 2SE 01-17 12:59
PROVIDERS: ADMIT Internal Medicine; ATTEND Internal Medicine
DX: H49.21 Sixth [abducent] nerve palsy, right eye (principal); I70.1 Atherosclerosis of renal artery; I12.9 Hypertensive chronic kidney disease with stage 1 through stage 4 chronic kidney disease, or unspecified chronic kidney disease; F17.210 Nicotine dependence, cigarettes, uncomplicated; I16.0 Hypertensive urgency; N18.1 Chronic kidney disease, stage 1
CPT/HCPCS: 36415; 70450; 70498; 70551; 71010; 74175; 76700; 76770; 80048; 80053; 80061; 80306; 81003; 82088; 82553; 83036; 83835; 84244; 84443; 84484; 85025; 85610; 85730; 93005; 93306; 93880; 96374; 99406; A4216; G8978-GP-CK; G8979-GP-CK; G8980-GP-CK; G8987-GO-CI; G8988-GO-CI; G8989-GO-CI; G9162-GN-CH; G9163-GN-CH; J0360

== ENCOUNTER 2018-03-30 20:39 | Emergency (ER) | payer SELFPAY ==
[2018-03-30] MEDS ORDERED: Adacel (T-DAP) 0.5 ML SYRINGE ONE (21:54)
== END 2018-03-30 22:29 | disposition home or self-care (01) ==
LOC: SCSER 20:39
DX: S01.81XA Laceration without foreign body of other part of head, initial encounter (principal); I10 Essential (primary) hypertension; F17.210 Nicotine dependence, cigarettes, uncomplicated; F32.9 Major depressive disorder, single episode, unspecified; W22.8XXA Striking against or struck by other objects, initial encounter
CPT/HCPCS: 12011; 90471; 90715